=== PATIENT | female | born 1930 | race Caucasian/White ===

== ENCOUNTER 2017-10-31 13:39 | Emergency (ER) | payer MEDICARE ==
[2017-10-31 14:11] VITALS: PULSE 62
[2017-10-31] MEDS ORDERED: SODIUM CHLORIDE 0.9% 1,000 ML IV STA ×2 (14:46)
--- NOTE | 2017-10-31 14:54 | ED ---
General Adult HPI - General Chief complaint: Nausea/Vomiting/Diarrhea Stated complaint: Dehydrated, sent by Time Seen by Provider: 10/31/17 14:29 Source: patient Mode of arrival: ambulatory Limitations: no limitations - History of Present Illness Initial comments: Is 87-year-old white female presents with daughter with the complaint of developing some symptoms of an upper respiratory infection on 10/19/2016. She was initially seen by her primary care physician and started on some Duricef and Singulair. This did not seem to help her symptoms and she developed a fever. She just finished a week long course of Levaquin as well but her upper respiratory symptoms seem to have persisted although the fever has resolved several days ago. She has had some minimal nausea but no vomiting. She apparently developed some diarrhea around 10/19/2016 as well. She barely will have diarrhea every day. She was seen by her primary care physician 2 days ago and placed on Flagyl as well as Imodium. She has not had a bowel movement since yesterday. She denies any abdominal pain. She apparently had blood work done 2 days ago and was called today and told to come to the ER as she is dehydrated and may have a viral infection. She does relate that she feels quite weak. She also feels somewhat lightheaded when she stands up initially. She denies any other complaints or modifying factors. - Related Data Allergies Allergy/AdvReac Type Severity Reaction Status Date / Time No Known Allergies Allergy Verified 10/31/17 14:11 Review of Systems ROS Statement: Those systems with pertinent positive or pertinent negative responses have been documented in the HPI. ROS Other: All systems not noted in ROS Statement are negative. Past Medical History Past Medical History: Hyperlipidemia, Hypertension History of Any Multi-Drug Resistant Organisms: None Reported Past Surgical History: No Surgical Hx Reported Past Psychological History: No Psychological Hx Reported Smoking Status: Never smoker Past Alcohol Use History: None Reported Past Drug Use History: None Reported General Exam - General Exam Comments Initial Comments: GENERAL: The patient is well nourished and well hydrated. VITAL SIGNS: Heart rate, blood pressure, respiratory rate reviewed as recorded in nurse's notes. EYES: Pupils are round and reactive. Extraocular movements are intact. No conjunctival / lid redness or swelling. ENT: No external evidence of injury, swelling, or ecchymosis. Airway is patent. Throat is clear. There is minimally dry mucous membranes. NECK: Nontender. No swelling or evidence of injury. No subcutaneous emphysema. Trachea is midline. No thyroid mass. HEART: Regular rate and rhythm. Good peripheral pulses. LUNGS/CHEST: Breath sounds clear and equal bilaterally. No rales, rhonchi, or wheezes. No ecchymosis, subcutaneous emphysema, or tenderness. ABDOMEN: Abdomen soft without tenderness. No palpable masses or organomegaly. No peritoneal signs. No abdominal wall swelling or ecchymosis. EXTREMITIES: No extremity tenderness. Normal muscle tone and function. No thoracolumbar tenderness. NEUROLOGIC: Sensation is grossly intact. Cranial nerve exam reveals face is symmetrical, tongue is midline, speech is clear. SKIN: No abrasions or ecchymosis is noted. No induration or masses noted. PSYCHIATRIC: Alert and oriented. Appropriate behavior and judgment. Limitations: no limitations Course Vital Signs 10/31/17 10/31/17 14:08 17:15 Temperature 97.9 F 98.5 F Pulse Rate 62 62 Respiratory 20 18 Rate Blood Pressure 138/65 207/89 O2 Sat by Pulse 97 98 Oximetry Medical Decision Making - Medical Decision Making The patient was seen and examined. All diagnostics were reviewed. She is hydrated. She did have a chest x-ray which did not show any acute abnormalities. The laboratory also was unremarkable. Her blood pressure did elevate while in the ER and she receives 20 mg of labetalol intravenously. The exact cause of her symptoms is not definitively determined. It sounds as though she had onset of diarrhea at the same time that she started or before she started the antibiotics. It is unlikely that this is C. difficile colitis. She was unable to give us a stool sample while in the emergency department. She is currently being treated for possible C. diff by a PCP. The patient's diarrhea sounds as though it's fairly minimal and she only is having a couple episodes a day and none for the last day and a half. She is feeling well after obtaining IV fluids. She states that she would like to be discharged home. Of note, her blood pressure became elevated while in the ER and she did receives labetalol intravenously. No admission criteria is currently identified. It is felt as though she stable for discharge and follow-up with her primary care physician in the next several days. - Lab Data Result diagrams: 10/31/17 14:10 10/31/17 14:10 Lab Results 10/31/17 10/31/17 10/31/17 Range/Units 14:10 14:10 15:50 WBC 4.8 (3.8-10.6) k/uL RBC 4.41 (3.80-5.40) m/uL Hgb 13.2 (11.4-16.0) gm/dL Hct 38.3 (34.0-46.0) % MCV 86.9 (80.0-100.0) fL MCH 29.8 (25.0-35.0) pg MCHC 34.4 (31.0-37.0) g/dL RDW 12.6 (11.5-15.5) % Plt Count 100 L (150-450) k/uL Neutrophils % 48 % Lymphocytes % 39 % Monocytes % 6 % Eosinophils % 3 % Basophils % 1 % Neutrophils # 2.3 (1.3-7.7) k/uL Lymphocytes # 1.9 (1.0-4.8) k/uL Monocytes # 0.3 (0-1.0) k/uL Eosinophils # 0.1 (0-0.7) k/uL Basophils # 0.0 (0-0.2) k/uL Sodium 142 (137-145) mmol/L Potassium 4.1 (3.5-5.1) mmol/L Chloride 102 (98-107) mmol/L Carbon Dioxide 28 (22-30) mmol/L Anion Gap 12 mmol/L BUN 19 H (7-17) mg/dL Creatinine 0.89 (0.52-1.04) mg/dL Est GFR (CKD-EPI)AfAm 67 (>60 ml/min/1.73 sqM) Est GFR (CKD-EPI)NonAf 59 (>60 ml/min/1.73 sqM) Glucose 99 (74-99) mg/dL Calcium 9.2 (8.4-10.2) mg/dL Total Bilirubin 0.3 (0.2-1.3) mg/dL AST 42 H (14-36) U/L ALT 41 (9-52) U/L Alkaline Phosphatase 63 (38-126) U/L Total Protein 6.2 L (6.3-8.2) g/dL Albumin 3.9 (3.5-5.0) g/dL Urine Color Yellow Urine Appearance Clear (Clear) Urine pH 6.5 (5.0-8.0) Ur Specific [place] 1.007 (1.001-1.035) Urine Protein Negative (Negative) Urine Glucose (UA) Negative (Negative) Urine Ketones Negative (Negative) Urine Blood Negative (Negative) Urine Nitrite Negative (Negative) Urine Bilirubin Negative (Negative) Urine Urobilinogen <2.0 (<2.0) mg/dL Ur Leukocyte Esterase Negative (Negative) Disposition Clinical Impression: Dehydration, Diarrhea, Upper respiratory infection, Hypertension Disposition: HOME SELF-CARE Condition: Good Instructions: Acute Diarrhea (ED), Upper Respiratory Infection (ED), Hypertension (ED) Is patient prescribed a controlled substance at discharge?: No Referrals: Maddie Chino MD [Primary Care Provider] - 1-2 days Time of Disposition: 17:26
[2017-10-31 15:03] LABS: Basophils % (A) 1 %; Eosinophils # (A) 0.1 k/uL (0-0.7); Eosinophils % (A) 3 %; HCT 38.3 % (34.0-46.0); HGB 13.2 gm/dL (11.4-16.0); Lymphocytes # (A) 1.9 k/uL (1.0-4.8); Lymphocytes % (A) 39 %; MCH 29.8 pg (25.0-35.0); MCHC 34.4 g/dL (31.0-37.0); MCV 86.9 fL (80.0-100.0); Monocytes # (A) 0.3 k/uL (0-1.0); Monocytes % (A) 6 %; Neutrophils # (A) 2.3 k/uL (1.3-7.7); Neutrophils % (A) 48 %; Platelet Count 100 k/uL (150-450); RBC 4.41 m/uL (3.80-5.40); RDW 12.6 % (11.5-15.5); WBC 4.8 k/uL (3.8-10.6)
--- NOTE | 2017-10-31 15:09 | XR ---
EXAMINATION TYPE: XR chest 2V DATE OF EXAM: 10/31/2017 COMPARISON: Prior chest 11/12/2012 HISTORY: Upper respiratory infection, pain TECHNIQUE: Frontal and lateral views of the chest are obtained. FINDINGS: There is no focal air space opacity, pleural effusion, or pneumothorax seen. The cardiac silhouette size is within normal limits. Surgical clips present in the upper abdomen. Prominent lung volumes again noted compatible with COPD. The osseous structures are intact. IMPRESSION: No acute cardiopulmonary process.
[2017-10-31 15:12] LABS: Albumin 3.9 g/dL (3.5-5.0); Calcium 9.2 mg/dL (8.4-10.2); Potassium 4.1 mmol/L (3.5-5.1); Total Bilirubin 0.3 mg/dL (0.2-1.3); Total Protein 6.2 g/dL (6.3-8.2)
[2017-10-31 16:18] LABS: Appearance,Urine Clear (Clear); Bilirubin,Urine Negative (Negative); Blood,Urine Negative (Negative); Color,Urine Yellow; Glucose,Urine (UA) Negative (Negative); Ketones,Urine Negative (Negative); Leukocyte Esterase,Urine Negative (Negative); Nitrite,Urine Negative (Negative); PH, Urine 6.5 (5.0-8.0); Protein,Urine Negative (Negative); Specific Gravity,Urine 1.007 (1.001-1.035); Urobilinogen,Urine <2.0 mg/dL (<2.0)
[2017-10-31 17:16] VITALS: RESP 18; TEMP 98.5
[2017-10-31] MEDS ORDERED: LABETALOL 5 MG/ML VIAL MDV IVP STA (17:23)
[2017-10-31 19:10] VITALS: BP 191/96
== END 2017-10-31 19:21 | disposition home or self-care (01) ==
LOC: EC 13:39
DX: I10 Essential (primary) hypertension (principal); J06.9 Acute upper respiratory infection, unspecified; E86.0 Dehydration; R19.7 Diarrhea, unspecified
CPT/HCPCS: 36415; 71046; 80053; 81003; 85025; 96361; 96374; 99284

== ENCOUNTER → 2019-01-21 | Outpatient (CLI) | payer MEDICARE ==
--- NOTE | 2019-01-21 11:47 | US ---
EXAMINATION TYPE: US abdomen comp/pelvis limited DATE OF EXAM: 01/21/2019 COMPARISON: NONE CLINICAL HISTORY: R94.5 Abnormal LFT R94.4 Abnormal Renal test. EXAM MEASUREMENTS: Liver Length: 10.2 cm Gallbladder Wall: Surgically absent cm CBD: 0.8 cm Spleen: 8.2 cm Right Kidney: 8.8 X 3.2 X 3.5 cm Left Kidney: 8.1 X 3.6 X 2.7 cm Post Void Residual: 55.6 mL Pancreas: wnl Liver: wnl Gallbladder: Surgically absent CBD: wnl Spleen: wnl Right Kidney: wnl Left Kidney: wnl Upper IVC: wnl Abd Aorta: wnl Bladder: wnl Bilateral Jets Seen Right jet seen. Normal Post Void Residual (normal less than 50ml) 55.6 ml IMPRESSION: 1. The liver appears overall unremarkable in echotexture despite the abnormal liver function tests. 2. Abnormal post void residual in the urinary bladder of 55.6 mm.
== END | disposition home or self-care (01) ==
LOC: RADUSWWP 09:58
PROVIDERS: ATTEND Internal Medicine
DX: N39.43 Post-void dribbling (principal)
CPT/HCPCS: 76700; 76857

== ENCOUNTER → 2019-04-21 | Outpatient (CLI) | payer MEDICARE ==
--- NOTE | 2019-04-21 14:57 | XR ---
Left shoulder HISTORY: Left shoulder pain 4 views of the left shoulder Regional spurring present at the glenohumeral joint, there is acromioclavicular joint arthropathy. Al ignment is maintained. Bone mineralization is reduced. No fracture or dislocation. Acromion is downtu rned, consider possible underlying impingement. There is some cloudlike increased attenuation seen in the subacromial region which may be due to calcific tendinitis. IMPRESSION: Osteoarthritis. Additional findings above.
--- NOTE | 2019-04-21 14:58 | XR ---
Left hip HISTORY: Hip pain 2 views of the left hip, correlation to pelvis 11/12/2012 There is arthropathy with marginal spurring present. Alignment and joint space near normal. Bone mine ralization mildly reduced. No fracture or dislocation. IMPRESSION: Osteoarthritis.
== END | disposition home or self-care (01) ==
LOC: RADXRMAIN 13:51
PROVIDERS: ATTEND Midwife
DX: M19.012 Primary osteoarthritis, left shoulder (principal); M16.12 Unilateral primary osteoarthritis, left hip
CPT/HCPCS: 73502

== ENCOUNTER → 2019-06-11 | Outpatient (CLI) | payer MEDICARE ==
--- NOTE | 2019-06-11 15:40 | BD ---
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 Bone mineral density as measured about the Lumbar spine is: ----- L1-L4(G/cm2): 1.107 T Score Values are as follows: ----- L2: -1.2 ----- L3: 0.0 ----- L4:-0.7 ----- L1-L4:-0.6 Bone mineral density about the R hip (g/cm2): 0.873 Bone mineral density about the L hip (g/cm2): 0.834 T Score values are as follows: -----R Neck: -1.2 -----L Neck: -1.5 -----R Total: -1.4 -----L Total: -1.3 IMPRESSION: Osteopenia (T Score between -2.5 and -1) in both hips. There is slightly increased risk of fracture and the patient may be considered for treatment. Re-Screen 2-5 years. NOTE: T-SCORE=SD OF THE YOUNG ADULT MEAN.
== END | disposition home or self-care (01) ==
LOC: RADBDWWP 13:13
PROVIDERS: ATTEND Family Medicine
DX: Z78.0 Asymptomatic menopausal state (principal)
CPT/HCPCS: 77080

== ENCOUNTER 2020-01-02 19:24 | Emergency (ER) | payer MEDICARE ==
[2020-01-02] MEDS ORDERED: ONDANSETRON 4 MG/2 ML VIAL IVP STA (19:52)
[2020-01-02] MEDS ORDERED: SODIUM CHLORIDE 0.9% 500 ML 500 ML IV ONE (19:52)
[2020-01-02] MEDS ORDERED: ATENOLOL 50 MG TAB PO STA (20:14)
[2020-01-02 20:20] LABS: Basophils % (A) 0 %; Eosinophils # (A) 0.2 k/uL (0-0.7); Eosinophils % (A) 2 %; HCT 41.7 % (34.0-46.0); HGB 13.6 gm/dL (11.4-16.0); Lymphocytes # (A) 1.6 k/uL (1.0-4.8); Lymphocytes % (A) 22 %; MCH 29.4 pg (25.0-35.0); MCHC 32.6 g/dL (31.0-37.0); Mean Platelet Volume 7.5; Monocytes # (A) 0.4 k/uL (0-1.0); Monocytes % (A) 6 %; Neutrophils # (A) 4.9 k/uL (1.3-7.7); Neutrophils % (A) 66 %; Platelet Count 144 k/uL (150-450); RBC 4.63 m/uL (3.80-5.40); RDW 12.7 % (11.5-15.5); WBC 7.4 k/uL (3.8-10.6)
[2020-01-02 20:33] LABS: Albumin 4.7 g/dL (3.5-5.0); Calcium 9.9 mg/dL (8.4-10.2); Potassium 3.8 mmol/L (3.5-5.1); Total Bilirubin 0.4 mg/dL (0.2-1.3); Total Protein 7.5 g/dL (6.3-8.2)
[2020-01-02] MEDS ORDERED: KETOROLAC 30 MG/ML 1 ML VIAL IVP STA (20:36)
[2020-01-02 20:37] LABS: Appearance,Urine Clear (Clear); Bilirubin,Urine Negative (Negative); Blood,Urine Negative (Negative); Color,Urine Yellow; Glucose,Urine (UA) Negative (Negative); Hyaline Casts,Urine 1 /lpf (0-2); Ketones,Urine Negative (Negative); Leukocyte Esterase,Urine Trace (Negative); Mucus,Urine Rare /hpf; Nitrite,Urine Negative (Negative); PH, Urine 6.5 (5.0-8.0); Protein,Urine Trace (Negative); RBC,Urine 6 /hpf (0-5); Specific Gravity,Urine 1.011 (1.001-1.035); Urobilinogen,Urine <2.0 mg/dL (<2.0); WBC,Urine 1 /hpf (0-5)
--- NOTE | 2020-01-02 20:59 | ED ---
General Adult HPI - General Chief complaint: Urogenital Stated complaint: UTI Time Seen by Provider: 01/02/20 19:33 Source: patient, family Mode of arrival: wheelchair Limitations: no limitations - History of Present Illness Initial comments: 89-year-old female patient presents to the emergency department today for evaluation of increased low back pain and abdominal pain. Patient was tested and started treated for urinary tract infection on Sunday. She states that prior to her visit at urgent care Sunday she was experiencing urinary frequency. Patient states she did start taking Macrobid for this. States that over the last couple days she has been increasingly more weak. States she did start having increased low back pain and upper abdominal pain. She states that she feels nauseated but has not vomited. Denies any fever or chills. Denies any confusion. Patient denies any recent rash, cough, shortness of breath, chest pain, diarrhea, constipation, numbness, tingling, dizziness, headache, visual changes, or any other complaints. - Related Data Allergies Allergy/AdvReac Type Severity Reaction Status Date / Time No Known Allergies Allergy Verified 01/02/20 19:32 Review of Systems ROS Statement: Those systems with pertinent positive or pertinent negative responses have been documented in the HPI. ROS Other: All systems not noted in ROS Statement are negative. Past Medical History Past Medical History: Hyperlipidemia, Hypertension, Thyroid Disorder History of Any Multi-Drug Resistant Organisms: None Reported Past Surgical History: No Surgical Hx Reported Past Psychological History: No Psychological Hx Reported Smoking Status: Never smoker Past Alcohol Use History: None Reported Past Drug Use History: None Reported General Exam Limitations: no limitations General appearance: alert, in no apparent distress, other (This is a well- developed, well-nourished elderly female patient in no acute distress. Vital signs upon presentation are temperature 98.8F, pulse 76, respirations 18, blood pressure 208/75, pulse ox 96% on room air.) Eye exam: Present: normal appearance, PERRL, EOMI. Absent: scleral icterus, conjunctival injection, periorbital swelling ENT exam: Present: normal exam, normal oropharynx, mucous membranes moist Respiratory exam: Present: normal lung sounds bilaterally. Absent: respiratory distress, wheezes, rales, rhonchi, stridor Cardiovascular Exam: Present: regular rate, normal rhythm, normal heart sounds. Absent: systolic murmur, diastolic murmur, rubs, gallop, clicks GI/Abdominal exam: Present: soft, normal bowel sounds. Absent: distended, tenderness, guarding, rebound, rigid Back exam: Present: normal inspection. Absent: CVA tenderness (R), CVA tenderness (L) Neurological exam: Present: alert, oriented X3, CN II-XII intact Psychiatric exam: Present: normal affect, normal mood Skin exam: Present: warm, dry, intact, normal color. Absent: rash Course Vital Signs 01/02/20 01/02/20 01/03/20 19:30 22:44 00:05 Temperature 98.8 F 98.4 F Pulse Rate 76 67 64 Respiratory 18 20 18 Rate Blood Pressure 208/75 219/111 181/81 O2 Sat by Pulse 96 98 97 Oximetry Medical Decision Making - Medical Decision Making 89-year-old female patient presents to the emergency department today for evaluation of weakness and back pain. Physical examination did reveal mild midepigastric tenderness. Labs reviewed and are relatively unremarkable. CT abdomen and pelvis was obtained and did show dilation of the pancreatic and common bile duct which could be chronic with her cholecystectomy. Bilirubin and alk phos levels were normal. Urinalysis showed no evidence for infection h owever CT did show circumferential bladder wall thickening which could be seen with cystitis. I did discuss findings and results with the patient. We did offer admission however patient would like to be discharged home to continue her antibiotics and to follow-up with her primary care physician. Return parameters were discussed in detail. Patient and family verbalized understanding and agree with this plan. - Lab Data Result diagrams: 01/02/20 20:10 01/02/20 20:10 Lab Results 01/02/20 01/02/20 01/02/20 Range/Units 20:10 20:10 20:10 WBC 7.4 (3.8-10.6) k/uL RBC 4.63 (3.80-5.40) m/uL Hgb 13.6 (11.4-16.0) gm/dL Hct 41.7 (34.0-46.0) % MCV 90.0 (80.0-100.0) fL MCH 29.4 (25.0-35.0) pg MCHC 32.6 (31.0-37.0) g/dL RDW 12.7 (11.5-15.5) % Plt Count 144 L (150-450) k/uL Neutrophils % 66 % Lymphocytes % 22 % Monocytes % 6 % Eosinophils % 2 % Basophils % 0 % Neutrophils # 4.9 (1.3-7.7) k/uL Lymphocytes # 1.6 (1.0-4.8) k/uL Monocytes # 0.4 (0-1.0) k/uL Eosinophils # 0.2 (0-0.7) k/uL Basophils # 0.0 (0-0.2) k/uL Sodium 132 L (137-145) mmol/L Potassium 3.8 (3.5-5.1) mmol/L Chloride 99 (98-107) mmol/L Carbon Dioxide 22 (22-30) mmol/L Anion Gap 11 mmol/L BUN 16 (7-17) mg/dL Creatinine 0.76 (0.52-1.04) mg/dL Est GFR (CKD-EPI)AfAm 81 (>60 ml/min/1.73 sqM) Est GFR (CKD-EPI)NonAf 70 (>60 ml/min/1.73 sqM) Glucose 117 H (74-99) mg/dL Plasma Lactic Acid Jayson 1.5 (0.7-2.0) mmol/L Calcium 9.9 (8.4-10.2) mg/dL Total Bilirubin 0.4 (0.2-1.3) mg/dL AST 40 H (14-36) U/L ALT 31 (4-34) U/L Alkaline Phosphatase 74 (38-126) U/L Troponin I (0.000-0.034) ng/mL Total Protein 7.5 (6.3-8.2) g/dL Albumin 4.7 (3.5-5.0) g/dL Lipase 218 (23-300) U/L Urine Color Urine Appearance (Clear) Urine pH (5.0-8.0) Ur Specific [place] (1.001-1.035) Urine Protein (Negative) Urine Glucose (UA) (Negative) Urine Ketones (Negative) Urine Blood (Negative) Urine Nitrite (Negative) Urine Bilirubin (Negative) Urine Urobilinogen (<2.0) mg/dL Ur Leukocyte Esterase (Negative) Urine RBC (0-5) /hpf Urine WBC (0-5) /hpf Hyaline Casts (0-2) /lpf Urine Mucus (None) /hpf 01/02/20 01/02/20 Range/Units 20:10 20:25 WBC (3.8-10.6) k/uL RBC (3.80-5.40) m/uL Hgb (11.4-16.0) gm/dL Hct (34.0-46.0) % MCV (80.0-100.0) fL MCH (25.0-35.0) pg MCHC (31.0-37.0) g/dL RDW (11.5-15.5) % Plt Count (150-450) k/uL Neutrophils % % Lymphocytes % % Monocytes % % Eosinophils % % Basophils % % Neutrophils # (1.3-7.7) k/uL Lymphocytes # (1.0-4.8) k/uL Monocytes # (0-1.0) k/uL Eosinophils # (0-0.7) k/uL Basophils # (0-0.2) k/uL Sodium (137-145) mmol/L Potassium (3.5-5.1) mmol/L Chloride (98-107) mmol/L Carbon Dioxide (22-30) mmol/L Anion Gap mmol/L BUN (7-17) mg/dL Creatinine (0.52-1.04) mg/dL Est GFR (CKD-EPI)AfAm (>60 ml/min/1.73 sqM) Est GFR (CKD-EPI)NonAf (>60 ml/min/1.73 sqM) Glucose (74-99) mg/dL Plasma Lactic Acid Jayson (0.7-2.0) mmol/L Calcium (8.4-10.2) mg/dL Total Bilirubin (0.2-1.3) mg/dL AST (14-36) U/L ALT (4-34) U/L Alkaline Phosphatase (38-126) U/L Troponin I <0.012 (0.000-0.034) ng/mL Total Protein (6.3-8.2) g/dL Albumin (3.5-5.0) g/dL Lipase (23-300) U/L Urine Color Yellow Urine Appearance Clear (Clear) Urine pH 6.5 (5.0-8.0) Ur Specific [place] 1.011 (1.001-1.035) Urine Protein Trace H (Negative) Urine Glucose (UA) Negative (Negative) Urine Ketones Negative (Negative) Urine Blood Negative (Negative) Urine Nitrite Negative (Negative) Urine Bilirubin Negative (Negative) Urine Urobilinogen <2.0 (<2.0) mg/dL Ur Leukocyte Esterase Trace H (Negative) Urine RBC 6 H (0-5) /hpf Urine WBC 1 (0-5) /hpf Hyaline Casts 1 (0-2) /lpf Urine Mucus Rare H (None) /hpf - Radiology Data Radiology results: report reviewed, image reviewed CT abdomen and pelvis is obtained. Report was reviewed in its entirety. Impression by Dr. Arredondo shows mild dilatation of the bile duct up to 9 mm. Mild dilatation of the main pancreatic duct as well as 4 mm. All findings may be chronic in this patient status post cholecystectomy there is 7 mm nodular soft tissue prominence of the ampullary region. Correlate with alkaline phosphatase and bilirubin levels to exclude biliary obstruction. Laboratory values are elevated, ERCP can be considered to assess sample area region. Gastric fold thickening and hyperemia can be seen with chronic gastritis. Circumferential bladder wall thickening. Correlate to exclude cystitis. Sigmoid diverticulosis without acute diverticulitis. Disposition Clinical Impression: Back pain, Abdominal pain, UTI (urinary tract infection) Disposition: HOME SELF-CARE Condition: Good Instructions (If sedation given, give patient instructions): Abdominal Pain (ED), Back Pain (ED), Urinary Tract Infection in Older Adults (ED) Additional Instructions: Continue antibiotics. Take pain medication and nausea medication as needed. Follow up with the GI specialist for further evaluation as soon as possible. Return to the emergency department for any new, worsening, or concerning symptoms. Is patient prescribed a controlled substance at d/c from ED?: No Referrals: Marce Ceja MD [STAFF PHYSICIAN] - 1-2 days Juan Manuel Saravia MD [STAFF PHYSICIAN] - 1-2 days Time of Disposition: 23:44
--- NOTE | 2020-01-02 21:55 | CT ---
EXAMINATION TYPE: CT abdomen pelvis w con DATE OF EXAM: 01/02/2020 COMPARISON: NONE HISTORY: 89-year-old female Back and abdominal pain. TECHNIQUE: Contiguous axial scanning of the abdomen and pelvis following administration of 100 ml Iso urvashi 300 IV contrast. Delayed images through the kidneys and coronal/sagittal reconstructions perform ed. CT DLP: 514.8 mGycm Automated exposure control for dose reduction was used. FINDINGS: Heart upper limits of normal in size without pericardial effusion. Strandy atelectasis in the lower l ungs without pleural effusion. Tiny hiatal hernia. Bile duct dilated up to 9 mm with mild intrahepatic ductal dilatation centrally. Main pancreatic duct is also prominent at 4 mm. 7 mm nodular prominence to the ampullary region. Refer to axial image 30. Cholecystectomy clips. Adrenal glands, right kidney with extra renal pelvis, left kidney, and spleen appear within normal li mits. Remainder of the pancreas shows no gross abnormality. Some diffuse gastric fold thickening and hyperemia. No dilated small bowel, free fluid, or free air. No mesenteric or retroperitoneal lymphadenopathy. Sigmoid diverticulosis. Mild stool right side of the colon. No pericolonic inflammatory change identi fied. Mild circumferential bladder wall thickening. Uterus anteverted. Left ovary visualized. Right ovary n ot clearly delineated from bowel loops. No abnormal fluid collection in the pelvis or pelvic lymphade nopathy. Bones: Degenerative disc disease throughout the lumbar spine along with facet arthropathy. Degenerati ve changes at both hips. IMPRESSION: 1. MILD DILATATION OF THE BILE DUCT UP TO 9 MM. MILD DILATATION OF THE MAIN PANCREATIC DUCT WELL A T 4 MM. WHILE FINDINGS MAY BE CHRONIC IN THIS PATIENT STATUS POST CHOLECYSTECTOMY, THERE IS 7 MM NODU LAR SOFT TISSUE PROMINENCE TO THE AMPULLARY REGION. CORRELATE WITH ALKALINE PHOSPHATASE AND BILIRUBIN LEVELS TO EXCLUDE BILIARY OBSTRUCTION. IF LABORATORY VALUES ARE ELEVATED, ERCP CAN BE CONSIDERED TO ASSESS THE AMPULLARY REGION. 2. GASTRIC FOLD THICKENING AND HYPEREMIA CAN BE SEEN WITH CHRONIC GASTRITIS. 3. CIRCUMFERENTIAL BLADDER WALL THICKENING. CORRELATE TO EXCLUDE CYSTITIS. 4. SIGMOID DIVERTICULOSIS WITHOUT ACUTE DIVERTICULITIS.
[2020-01-02 22:45] VITALS: TEMP 98.4
[2020-01-02] MEDS ORDERED: MORPHINE SULFATE 4 MG/ML SYRINGE IVP STA (22:49)
[2020-01-02] MEDS ORDERED: ENALAPRILAT 1.25 MG/ML 1 ML VIAL IVP STA (23:43)
[2020-01-03 00:10] VITALS: BP 181/81; PULSE 64; RESP 18
[2020-01-03] MEDS ORDERED: ACET/COD 300 MG/30 MG STARTER PACK 6 TAB BTL PO STA (00:11)
== END 2020-01-03 00:22 | disposition home or self-care (01) ==
LOC: EC 19:24
DX: N39.0 Urinary tract infection, site not specified (principal)
CPT/HCPCS: 36415; 93005; 80053; 83605; 83690; 84484; 85025; 81001; 74177; 99284; 96374; 96375 ×3; 96361; J2270; J2405; J1885; Q9967

== ENCOUNTER 2020-01-05 10:27 | Observation (INO) | payer MEDICARE ==
[2020-01-05] MEDS ORDERED: MORPHINE SULFATE 2 MG/ML SYRINGE IVP STA (11:13)
[2020-01-05] MEDS ORDERED: SODIUM CHLORIDE 0.9% 1,000 ML IV STA (11:13)
--- NOTE | 2020-01-05 11:17 | ED ---
Abdominal Pain HPI <Ephraim Stanley - Last Filed: 01/05/20 13:44> - General Source: patient, family Mode of arrival: wheelchair Limitations: no limitations <Amadeo Lauren - Last Filed: 01/05/20 14:02> - General Chief Complaint: Abdominal Pain Stated Complaint: Abd pain, can't eat Time Seen by Provider: 01/05/20 10:43 - History of Present Illness Initial Comments: Patient is an 89-year-old female presenting to the emergency department with chief complaint of weakness and abdominal pain. Patient reports she was in the emergency department 2 days ago with similar symptoms. Patient reports she was advised to see a GI doctor who declined admission. Patient reports her abdominal pain is slightly better as well as for back pain. However, she continues to be weak and is not able to eat. Reports the abdominal bloating a sense resolved. Denies any urinary or vaginal symptoms at this time. Reports the back pain is about 4/10. Denies any significant abdominal pain at this time. Denies any nausea or vomiting. Denies hematuria, hematochezia or melena. Does report mild diarrhea. (Amadeo Lauren) - Related Data Home Medications Medication Instructions Recorded Confirmed Acetaminophen [Tylenol Arthritis] 650 mg PO Q12H PRN 01/05/20 01/05/20 Ascorbic Acid [Vitamin C] 500 mg PO DAILY 01/05/20 01/05/20 Aspirin EC [Ecotrin Low Dose] 81 mg PO DAILY 01/05/20 01/05/20 Atenolol [Tenormin] 50 mg PO HS 01/05/20 01/05/20 Atorvastatin [Lipitor] 10 mg PO HS 01/05/20 01/05/20 Bee Pollen 550 mg PO DAILY 01/05/20 01/05/20 Calcium Carbonate/Vitamin D3 1 tab PO BID 01/05/20 01/05/20 [Calcium 600-Vit D3 200 Tablet] Cholecalciferol [Vitamin D3 (25 1,000 unit PO DAILY 01/05/20 01/05/20 Mcg = 1000 Iu)] Cranberry 4200mg 4,200 mg PO DAILY 01/05/20 01/05/20 Garlic 1 tab PO DAILY 01/05/20 01/05/20 Glucosamine Hcl 2000mg 2,000 mg PO DAILY 01/05/20 01/05/20 Ibuprofen [Motrin Ib] 200 - 400 mg PO Q6H PRN 01/05/20 01/05/20 Levothyroxine Sodium [Synthroid] 25 mcg PO DAILY 01/05/20 01/05/20 Magnesium 200 mg PO BID 01/05/20 01/05/20 Multivitamins, Thera [Multivitamin 1 tab PO DAILY 01/05/20 01/05/20 (formulary)] Nitrofurantoin Monohyd/M-Cryst 100 mg PO Q12HR 01/05/20 01/05/20 [Macrobid] Omeprazole 20 mg PO DAILY 01/05/20 01/05/20 Turmeric Root Extract [Turmeric] 500 mg PO DAILY 01/05/20 01/05/20 quiNIDine SULFATE 300 mg PO Q48H 01/05/20 01/05/20 Allergies Allergy/AdvReac Type Severity Reaction Status Date / Time No Known Allergies Allergy Verified 01/05/20 11:41 Review of Systems ROS Other: All systems not noted in ROS Statement are negative. <Ephraim Stanley - Last Filed: 01/05/20 13:44> ROS Other: All systems not noted in ROS Statement are negative. <Amadeo Lauren - Last Filed: 01/05/20 14:02> ROS Statement: Those systems with pertinent positive or pertinent negative responses have been documented in the HPI. Past Medical History Past Medical History: Hyperlipidemia, Hypertension, Thyroid Disorder History of Any Multi-Drug Resistant Organisms: None Reported Past Surgical History: No Surgical Hx Reported Past Psychological History: No Psychological Hx Reported Smoking Status: Never smoker Past Alcohol Use History: None Reported Past Drug Use History: None Reported <Amadeo Lauren - Last Filed: 01/05/20 14:02> General Exam Limitations: no limitations General appearance: alert, in no apparent distress Head exam: Present: atraumatic, normocephalic, normal inspection Eye exam: Present: normal appearance, PERRL, EOMI Pupils: Present: normal accommodation ENT exam: Present: normal exam, normal oropharynx, mucous membranes moist Neck exam: Present: normal inspection, full ROM. Absent: tenderness Respiratory exam: Present: normal lung sounds bilaterally. Absent: respiratory distress, wheezes Cardiovascular Exam: Present: regular rate, normal rhythm, normal heart sounds GI/Abdominal exam: Present: soft, tenderness (Mild left upper quadrant abdominal tenderness.), normal bowel sounds. Absent: distended, guarding, rebound, rigid Extremities exam: Present: normal inspection, full ROM, normal capillary refill, other (+2 ulnar and radial pulses bilateral.). Absent: tenderness Back exam: Present: normal inspection, full ROM. Absent: tenderness, CVA tenderness (R), CVA tenderness (L), muscle spasm, paraspinal tenderness, vertebral tenderness (No lumbar paraspinal or vertebral tenderness.) Neurological exam: Present: alert, oriented X3 Psychiatric exam: Present: normal affect, normal mood Skin exam: Present: warm, dry, intact, normal color <Amadeo Lauren - Last Filed: 01/05/20 14:02> Course Vital Signs 01/05/20 01/05/20 01/05/20 10:38 12:25 13:19 Temperature 98.9 F 98.6 F Pulse Rate 75 63 63 Respiratory 18 18 18 Rate Blood Pressure 137/68 205/84 224/82 O2 Sat by Pulse 98 98 98 Oximetry 01/05/20 01/05/20 01/05/20 13:30 13:40 13:54 Temperature Pulse Rate 70 69 Respiratory 18 18 Rate Blood Pressure 160/69 166/69 169/71 O2 Sat by Pulse Oximetry Medical Decision Making - Lab Data Result diagrams: 01/05/20 11:25 01/05/20 11:25 <Ephraim Stanley - Last Filed: 01/05/20 13:44> - Lab Data Result diagrams: 01/05/20 11:25 01/05/20 11:25 <Amadeo Lauren - Last Filed: 01/05/20 14:02> - Medical Decision Making Patient reevaluated and reexamined by myself, Dr. Stanley. I do agree with PAs findings. This includes diagnostic interpretation and treatment plan. Patient has had abdominal discomfort for the past several days. Decreased appetite. Patient has been generally weak and easily fatigued. Case was discussed with Dr. Emmanuel, who will admit covering for Dr. Ceja. He does request chest x-ray and lactic acid and d-dimer. He also feels GI will be needed for MRCP. (Ephraim Stanley) Patient is an 89-year-old female presenting to emergency Department with chief complaint of increased weakness and abdominal pain. On exam patient appears to have some left upper quadrant abdominal pain. No back pain or CVA tenderness. Laboratory results revealed no significant findings. Patient will be admitted for further medical management. Case discussed with Dr. Stanley who spoke to Dr. Emmanuel regarding the case. He requested chest and abdominal x-ray, lactic acid and d-dimer. GI will be consulted. (Amadeo Lauren) - Lab Data Lab Results 01/05/20 01/05/20 01/05/20 Range/Units 11:25 11:25 11:25 WBC 8.4 (3.8-10.6) k/uL RBC 4.37 (3.80-5.40) m/uL Hgb 13.6 (11.4-16.0) gm/dL Hct 39.7 (34.0-46.0) % MCV 90.9 (80.0-100.0) fL MCH 31.1 (25.0-35.0) pg MCHC 34.2 (31.0-37.0) g/dL RDW 12.8 (11.5-15.5) % Plt Count 185 (150-450) k/uL Neutrophils % 61 % Lymphocytes % 26 % Monocytes % 6 % Eosinophils % 3 % Basophils % 0 % Neutrophils # 5.1 (1.3-7.7) k/uL Lymphocytes # 2.2 (1.0-4.8) k/uL Monocytes # 0.5 (0-1.0) k/uL Eosinophils # 0.3 (0-0.7) k/uL Basophils # 0.0 (0-0.2) k/uL Sodium 136 L (137-145) mmol/L Potassium 4.3 (3.5-5.1) mmol/L Chloride 99 (98-107) mmol/L Carbon Dioxide 28 (22-30) mmol/L Anion Gap 9 mmol/L BUN 25 H (7-17) mg/dL Creatinine 0.96 (0.52-1.04) mg/dL Est GFR (CKD-EPI)AfAm 61 (>60 ml/min/1.73 sqM) Est GFR (CKD-EPI)NonAf 53 (>60 ml/min/1.73 sqM) Glucose 86 (74-99) mg/dL Calcium 9.2 (8.4-10.2) mg/dL Total Bilirubin 0.4 (0.2-1.3) mg/dL AST 30 (14-36) U/L ALT 26 (4-34) U/L Alkaline Phosphatase 66 (38-126) U/L Total Protein 6.8 (6.3-8.2) g/dL Albumin 4.2 (3.5-5.0) g/dL Lipase 143 (23-300) U/L Urine Color Yellow Urine Appearance Clear (Clear) Urine pH 7.0 (5.0-8.0) Ur Specific [place] 1.005 (1.001-1.035) Urine Protein 1+ H (Negative) Urine Glucose (UA) Negative (Negative) Urine Ketones Negative (Negative) Urine Blood Negative (Negative) Urine Nitrite Negative (Negative) Urine Bilirubin Negative (Negative) Urine Urobilinogen <2.0 (<2.0) mg/dL Ur Leukocyte Esterase Small (Negative) Urine RBC 2 (0-5) /hpf Urine WBC 2 (0-5) /hpf Ur Squamous Epith Cells <1 (0-4) /hpf Urine Bacteria Rare H (None) /hpf Hyaline Casts 21 H (0-2) /lpf Urine Mucus Rare H (None) /hpf Disposition <Ephraim Stanley - Last Filed: 01/05/20 13:44> Is patient prescribed a controlled substance at d/c from ED?: No Time of Disposition: 14:01 <Amadeo Lauren - Last Filed: 01/05/20 14:02> Clinical Impression: Abdominal pain, Weakness Disposition: ADMITTED IP TO THIS HOSP Condition: Good Instructions (If sedation given, give patient instructions): Abdominal Pain (ED) Additional Instructions: Patient will be admitted Referrals: Marce Ceja MD [Primary Care Provider] - 1-2 days
[2020-01-05 11:49] LABS: Basophils % (A) 0 %; Eosinophils # (A) 0.3 k/uL (0-0.7); Eosinophils % (A) 3 %; HCT 39.7 % (34.0-46.0); HGB 13.6 gm/dL (11.4-16.0); Lymphocytes # (A) 2.2 k/uL (1.0-4.8); Lymphocytes % (A) 26 %; MCH 31.1 pg (25.0-35.0); MCHC 34.2 g/dL (31.0-37.0); MCV 90.9 fL (80.0-100.0); Mean Platelet Volume 7.7; Monocytes # (A) 0.5 k/uL (0-1.0); Monocytes % (A) 6 %; Neutrophils # (A) 5.1 k/uL (1.3-7.7); Neutrophils % (A) 61 %; Platelet Count 185 k/uL (150-450); RBC 4.37 m/uL (3.80-5.40); RDW 12.8 % (11.5-15.5); WBC 8.4 k/uL (3.8-10.6)
[2020-01-05 11:56] LABS: Albumin 4.2 g/dL (3.5-5.0); Bacteria,Urine Rare /hpf; Calcium 9.2 mg/dL (8.4-10.2); Hyaline Casts,Urine 21 /lpf (0-2); Mucus,Urine Rare /hpf; Potassium 4.3 mmol/L (3.5-5.1); RBC,Urine 2 /hpf (0-5); Squamous Epithelial Cell,Urine <1 /hpf (0-4); Total Bilirubin 0.4 mg/dL (0.2-1.3); Total Protein 6.8 g/dL (6.3-8.2)
[2020-01-05 12:02] LABS: Appearance,Urine Clear (Clear); Color,Urine Yellow; Specific Gravity,Urine 1.005 (1.001-1.035)
[2020-01-05 12:03] LABS: Protein,Urine 1+ (Negative)
[2020-01-05 12:04] LABS: Bilirubin,Urine Negative (Negative); Blood,Urine Negative (Negative); Glucose,Urine (UA) Negative (Negative); Ketones,Urine Negative (Negative); Urobilinogen,Urine <2.0 mg/dL (<2.0)
[2020-01-05 12:05] LABS: Leukocyte Esterase,Urine Small (Negative); Nitrite,Urine Negative (Negative); WBC,Urine 2 /hpf (0-5)
[2020-01-05] MEDS ORDERED: hydrALAZINE HCL 20 MG/ML 1 ML VIAL IVP STA (12:59)
[2020-01-05] MEDS ORDERED: HYDROmorphone 0.5 MG/0.5 ML SYRINGE IVP PRN (13:47)
[2020-01-05] MEDS ORDERED: ACETAMINOPHEN TAB 325 MG TAB PO PRN (13:47)
[2020-01-05] MEDS ORDERED: NALOXONE 0.4 MG/ML 1 ML VIAL IV PRN (13:47)
[2020-01-05] MEDS ORDERED: LORazepam 2 MG/ML INJ IV PRN (13:47)
[2020-01-05] MEDS ORDERED: ONDANSETRON 4 MG/2 ML VIAL IVP PRN (13:47)
[2020-01-05] MEDS ORDERED: MORPHINE SULFATE 4 MG/ML SYRINGE IV PRN (13:47)
--- NOTE | 2020-01-05 14:21 | XR ---
EXAMINATION TYPE: XR chest 2V DATE OF EXAM: 01/05/2020 COMPARISON: Chest x-ray October 31, 2017. HISTORY: Chest and upper abdominal pain. TECHNIQUE: Frontal and lateral views of the chest are obtained. FINDINGS: There is chronic parenchymal changes bilaterally without suspicious new focal air space op acity, pleural effusion, or pneumothorax seen. The cardiac silhouette size remains within normal hu its with atherosclerotic change in the thoracic aorta. Cholecystectomy clips are present. The osseou s structures are demineralized. IMPRESSION: Chronic changes without acute pulmonary process.
[2020-01-05] MEDS: SODIUM CHLORIDE 0.9% 1,000 ML IV SCH (15:04)
--- NOTE | 2020-01-05 15:04 | US ---
EXAMINATION TYPE: US abdomen complete DATE OF EXAM: 01/05/2020 COMPARISON: CT 01/02/2020, US 01/21/2019 CLINICAL HISTORY: abd pain. EXAM MEASUREMENTS: Liver Length: 10.7 cm Gallbladder Wall: Surgically absent CBD: 0.9 cm Spleen: 7.9 cm Right Kidney: 9.1 x 4.0 x 4.0 cm Left Kidney: 8.1 x 3.6 x 3.1 cm Pancreas: Obscured by bowel gas Liver: heterogeneous Gallbladder: Surgically absent Evidence for sonographic Lynn's sign: No CBD: wnl for postcholecystectomy, distal portion obscured by bowel gas Spleen: wnl Right Kidney: No hydronephrosis or masses seen Left Kidney: Measuring slightly smaller versus right Upper IVC: wnl Abd Aorta: Atherosclerotic changes The liver is heterogeneous consistent with diffuse fatty infiltration with prominent left hepatic lob e. The intrahepatic portion of the IVC is unremarkable. Visualized abdominal aorta shows diffuse ath erosclerotic change without aneurysm. Gallbladder noted surgically absent. Common bile duct is unrem arkable. Suboptimal evaluation of pancreas and images saved. The spleen is unremarkable. Kidneys ar e symmetric and free of hydronephrosis. No renal lesions are seen. IMPRESSION: No suspicious new or acute finding from recent CT 3 days ago.
[2020-01-05] MEDS ORDERED: cloNIDine HCL 0.2 MG TAB PO STA (15:14)
[2020-01-05] MEDS ORDERED: SODIUM CHLORIDE 0.9% 1,000 ML IV ONE (17:46)
--- NOTE | 2020-01-05 19:53 | XR ---
EXAMINATION TYPE: XR lumbar spine 2 or 3V DATE OF EXAM: 01/05/2020 COMPARISON: NONE HISTORY: Back pain TECHNIQUE: 2 views FINDINGS: There is some hypertrophic spurring of the endplates. There is narrowing of L4-5 L5-S1 dis c spaces. Abdominal aorta is atheromatous. Lumbar vertebra have normal alignment. Sacroiliac joints a ppear intact. IMPRESSION: Mild degenerative disc changes in the lumbar spine. No fracture seen.
[2020-01-06 06:08] LABS: Basophils % (A) 1 %; Eosinophils # (A) 0.3 k/uL (0-0.7); Eosinophils % (A) 4 %; HCT 35.5 % (34.0-46.0); HGB 11.8 gm/dL (11.4-16.0); Lymphocytes # (A) 2.4 k/uL (1.0-4.8); Lymphocytes % (A) 37 %; MCH 30.7 pg (25.0-35.0); MCHC 33.3 g/dL (31.0-37.0); MCV 92.4 fL (80.0-100.0); Mean Platelet Volume 7.9; Monocytes # (A) 0.4 k/uL (0-1.0); Monocytes % (A) 6 %; Neutrophils # (A) 3.3 k/uL (1.3-7.7); Neutrophils % (A) 50 %; Platelet Count 161 k/uL (150-450); RBC 3.85 m/uL (3.80-5.40); WBC 6.5 k/uL (3.8-10.6)
[2020-01-06 06:17] LABS: Albumin 3.3 g/dL (3.5-5.0); Calcium 8.4 mg/dL (8.4-10.2); Total Bilirubin 0.5 mg/dL (0.2-1.3); Total Protein 5.7 g/dL (6.3-8.2)
[2020-01-06 06:18] LABS: Potassium 3.8 mmol/L (3.5-5.1)
[2020-01-06] MEDS ORDERED: PANTOPRAZOLE 40 MG TABLET PO SCH ×2 (07:30→09:00)
[2020-01-06] MEDS: PIPERACILLIN-TAZOBACTAM 3.375 GM in SODIUM CHLORIDE 0.9% 100 ML IVPB SCH ×2 (08:13→16:41)
[2020-01-06] MEDS: LEVOTHYROXINE 25 MCG TAB PO SCH (08:15)
[2020-01-06] MEDS: SODIUM CHLORIDE 0.9% 1,000 ML IV SCH ×2 (08:15→16:43)
[2020-01-06] MEDS: ASPIRIN 81 MG PO SCH (08:16)
[2020-01-06] MEDS: ASCORBIC ACID 500 MG TAB PO SCH (08:16)
[2020-01-06] MEDS: CHOLECALCIFEROL 1,000 UNIT TAB PO SCH (08:16)
[2020-01-06] MEDS: MAGNESIUM OXIDE 400 MG TAB PO SCH ×2 (08:16→21:32)
[2020-01-06] MEDS: CALCIUM CARB-VIT D 500MG-200UN 1 EACH TAB PO SCH ×2 (08:16→21:32)
[2020-01-06] MEDS: NITROFURANTOIN MONOHYD/M-CRYST 100 MG CAP PO SCH ×2 (08:17→21:42)
[2020-01-06] MEDS: MULTIVITAMINS, THERA 1 EACH TAB PO SCH (08:18)
[2020-01-06] MEDS ORDERED: NON FORMULARY DRUG (Garlic [Garlic] 1 TAB) PO SCH (09:00)
[2020-01-06] MEDS ORDERED: NON FORMULARY DRUG (Cranberry 4200mg 4,200 MG) PO SCH (09:00)
[2020-01-06] MEDS ORDERED: QUINIDINE SULFATE 300 MG PO SCH (09:00)
[2020-01-06] MEDS ORDERED: NON FORMULARY DRUG (Turmeric Root Extract [Turmeric] 500 MG) PO SCH (09:00)
[2020-01-06] MEDS: metroNIDAZOLE 500 MG TAB PO SCH ×3 (12:52→21:42)
[2020-01-06] MEDS ORDERED: LIDOCAINE 1% INJ 10MG/ML (20 ML MDV) ONE (14:09)
[2020-01-06] MEDS ORDERED: PROPOFOL 10 MG/ML 20 ML VIAL IV ONE (14:09)
[2020-01-06] MEDS ORDERED: SODIUM CHLORIDE 0.9% 1,000 ML IV ONE ×2 (14:22)
--- NOTE | 2020-01-06 15:10 | P.PCN ---
Date of Procedure: 01/06/20 Procedure(s) Performed: BRIEF HISTORY: Patient is a 89-year-old, pleasant, white female admitted hospital with progressive dysphagia to solids for the last several weeks duration. She feels the food gets stuck in her throat area. She has been having passive regurgitation. Scheduled for an upper endoscopy with a possible dilation. PROCEDURE PERFORMED: Esophagogastroduodenoscopy with biopsy and dilation. PREOPERATIVE DIAGNOSIS: Progressive dysphagia to solids for the last few weeks duration. IV sedation per anesthesia. PROCEDURE: After informed consent was obtained, the patient was brought into the endoscopy unit. IV sedation was administered by Anesthesia under continuous monitoring. Initially the Olympus GIF-140 video endoscope was inserted into the mouth. Esophagus intubated without any difficulty. It was gradually advanced into the stomach and duodenum and carefully examined. The bulb and the second part of the duodenum appeared normal. The scope at this time was withdrawn to the stomach, adequately insufflated with air, and upon careful examination, mucosa of the antrum, body, cardia and the fundus appeared normal. The scope was then withdrawn into the esophagus. The GE junction was located at 39 cm from the incisors. There was a distal esophageal Schatzki's ring identified and this was dilated using 10-15 mm TTS balloon in a sequential fashion for 60 seconds. Also there was a superficial ulceration noted in the distal esophagus and biopsies were done from this area. The rest of the esophagus appeared normal. There were no erosions or ulcerations seen and the patient tolerated the procedure well. IMPRESSION: 1. Distal esophageal Schatzki's ring status post balloon dilation using 12-15 mm TTS balloon as Above. 2. Superficial ulceration in the distal esophagus consistent with reflux esophagitis. RECOMMENDATIONS: The findings of this examination were discussed with the patient as well as a family. She'll be on a clear liquid diet today. Continue with Protonix 40 mg twice daily. Await biopsy results.
--- NOTE | 2020-01-06 16:23 | CONS ---
CONSULTATION DATE OF DICTATION: 01/06/2020 REASON FOR CONSULTATION: Weakness, abdominal pain, dysphagia. HISTORY OF PRESENT ILLNESS: The patient is an 89-year-old pleasant white female who came into the emergency room yesterday complaining of abdominal pain, progressive weakness, dysphagia to solids for the last few weeks' duration. According to her daughter, who provided most of the history, she has been having progressive dysphagia to solids for the last several weeks. She complains of passive regurgitation. She feels the food gets stuck in her lower sternal area. She has a history of gastroesophageal reflux disease and has been taking omeprazole 20 mg daily. She recalls having an upper endoscopy with dilation about 20 years ago. Her abdominal pain is mostly in the epigastric and right upper quadrant area. She reports no nausea, vomiting. She denies any recent weight loss. No rectal bleeding or melena. PAST MEDICAL HISTORY: Her past medical history is significant for hypertension, hyperlipidemia, hypothyroidism, gastroesophageal reflux disease. PAST SURGICAL HISTORY: Upper endoscopy 20 years ago. MEDICATIONS: Medications at home include Synthroid, Motrin, glucosamine, garlic, cranberry, vitamin D, calcium, Lipitor, Tenormin, aspirin, vitamin C, Tylenol Arthritis, tumeric, quinidine, omeprazole multivitamin. ALLERGIES: NONE. SOCIAL HISTORY: No smoking. No alcohol use. FAMILY HISTORY: Unremarkable. REVIEW OF SYSTEMS: CARDIOPULMONARY: No chest pain or shortness of breath. GENITOURINARY: No dysuria or hematuria. MUSCULOSKELETAL: Unremarkable. SKIN: Unremarkable. ENDOCRINE: Unremarkable. PSYCHIATRIC: Unremarkable. NEUROLOGY: Unremarkable. ENT/VISION: Unremarkable. CONSTITUTIONAL: Generalized weakness. No fever, chills, night sweats. GI: As mentioned above. HEMATOLOGY: Unremarkable. PHYSICAL EXAMINATION: She appears comfortable. No apparent distress. VITAL SIGNS: Stable. Blood pressure is 197/66, pulse rate 67, temperature 98.1. HEENT examination unremarkable. Conjunctivae pink. Sclerae anicteric. Oral cavity no lesions. NECK: No JVD or lymph node enlargement. CHEST: Clear to auscultation. HEART: Regular rate and rhythm. ABDOMEN: Soft. There was mild tenderness in the epigastric area. The rest of the abdomen was benign. Bowel sounds are positive. No organomegaly. EXTREMITIES: No pedal edema. SKIN: No rashes. NEUROLOGIC: Alert and oriented x3. No focal deficits. LABS: WBC 8.4, hemoglobin 13.6, platelets normal. Basic metabolic panel is within normal limits. Lipase is normal. ALT, AST, T-bilirubin and alkaline phosphatase are also within normal limits. She did have ultrasound of the abdomen done yesterday that showed heterogeneous-appearing liver consistent with fatty infiltration with prominent left lobe of the liver. Common bile duct is unremarkable. Gallbladder surgically absent. Pancreas is obscured by gas. She had an abdominal CT scan done on 01/02/2020 that showed mild dilation of the common bile duct measuring 9 mm in diameter as well as mild dilation of the pancreatic duct. Also there was a 7 mm nodular soft tissue prominence noted in the ampullary region and gastric fold thickening was noted. Sigmoid diverticulosis. IMPRESSION: 1. Progressive dysphagia to solids for the last several months' duration. Rule out esophageal stricture. 2. History of gastroesophageal reflux disease. 3. Abnormal CT scan showing dilated common bile duct as well as mild dilation of the pancreatic duct of unclear significance. Her lipase is normal. LFTs are within normal limits. RECOMMENDATIONS: 1. Will proceed with an EGD with dilation today. 2. Discussed with the patient as well as her daughter risks, benefits and complications. 3. Continue with Protonix 40 mg twice daily. 4. Will obtain MRCP to evaluate the pancreatic or biliary system. 5. Will follow with you closely. Thank you for this consultation. MMODL / IJN: [id number] /
[2020-01-06] MEDS: PANTOPRAZOLE 40 MG TABLET PO SCH (16:42)
[2020-01-06] MEDS: hydrALAZINE HCL 10 MG TAB PO SCH ×2 (16:42→21:32)
[2020-01-06] MEDS ORDERED: Acetaminophen-Codeine 300-30mg TAB PO PRN (20:37)
[2020-01-06] MEDS ORDERED: ATENOLOL 50 MG TAB PO SCH (21:00)
[2020-01-06] MEDS ORDERED: ATORVASTATIN 10 MG TAB PO SCH (21:00)
--- NOTE | 2020-01-06 23:35 | P.HPIM ---
History of Present Illness H&P Date: 01/05/20 Chief Complaint: Severe abdominal pain, back pain, dilated common duct, history of gallbladd 89-year-old female who was transferred to Dr. Snyder's service recently was seen at the emergency department on the after was seen at the walk-in clinic was diagnosed with UTI and was treated developed to have significant abdominal pain as a seated with lower back pain with no appetite with worsening symptom ended up coming to the emergency department at the time w as seen her CAT scan of the abdomen on the showed significant common duct dilated patient with 7 mm nodular soft tissue at the ampullary region could be malignant in origin. Patient refused to be admitted at to the hospital at the time ended up going home but continued to have significant and worsening symptoms ended up coming to demurs department with family member because of the severity of her abdominal discomfort not been able to eat or drink become quite bit dehydrated and her discomfort as radiating to lower back area. Review her CAT scan showed significant thickening of the gastric area consistent with a chronic gastritis also consistent with chronic cystitis and mild diverticulitis. With all the above symptoms patient was seen today and evaluated L-spine x-ray showed mild lumbar spine degenerative arthritis her UA still slightly but positive with white blood cell down to 8.4 her liver enzyme including her alkaline phosphatase were not elevated at the time. Patient will be started on pantoprazole IV mild management for diverticulitis we consult gastroenterology for the current finding with her biliary tree and possible need either an ERCP or MRCP with the severity of her nausea and severe gastritis might need an EGD initially. Review of Systems CONSTITUTIONAL: Well-developed no acute respiratory distress. EYES: No icterus sclerae, no conjunctivitis. EARS, NOSE, MOUTH, THROAT, and FACE: No sore throat, lymphadenopathy, carotid bruits or deformity. RESPIRATORY: No SOB cough or wheezes. CARDIOVASCULAR: No CP, Palpitation, PND, Orthopnea, or angina. GASTROINTESTINAL: Positive abdominal pain with nausea and vomiting slight diarrhea no gastrointestinal bleed at the time slight change in bowel habit. No sign of jaundice as well. Mild symptom of left lower quadrant discomfort. GENITOURINARY: Mild symptom of UTI and patient is still on treatment. INTEGUMENT/BREAST: Negative for any muscular injury with mild osteoarthritis.. HEMATOLOGIC/LYMPHATIC: Negative for bleed or purpura. MUSCULOSKELTAL: Significant lower back pain. NEURLOGICAL: No LOC, Sz or syncope, blurred vision dizziness or abnormality.. BEHAVIORAL/PSYCH: Negative. ENDOCRINE: Negative. 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 History of Any Multi-Drug Resistant Organisms: None Reported Past Surgical History: Cholecystectomy Past Anesthesia/Blood Transfusion Reactions: No Reported Reaction Past Psychological History: No Psychological Hx Reported Smoking Status: Never smoker Past Alcohol Use History: None Reported Past Drug Use History: None Reported - Past Family History Father Family Medical History: Cancer Medications and Allergies Home Medications Medication Instructions Recorded Confirmed Type Acetaminophen [Tylenol Arthritis] 650 mg PO Q12H PRN 01/05/20 01/05/20 History Ascorbic Acid [Vitamin C] 500 mg PO DAILY 01/05/20 01/05/20 History Aspirin EC [Ecotrin Low Dose] 81 mg PO DAILY 01/05/20 01/05/20 History Atenolol [Tenormin] 50 mg PO HS 01/05/20 01/05/20 History Atorvastatin [Lipitor] 10 mg PO HS 01/05/20 01/05/20 History Bee Pollen 550 mg PO DAILY 01/05/20 01/05/20 History Calcium Carbonate/Vitamin D3 1 tab PO BID 01/05/20 01/05/20 History [Calcium 600-Vit D3 200 Tablet] Cholecalciferol [Vitamin D3 (25 1,000 unit PO DAILY 01/05/20 01/05/20 History Mcg = 1000 Iu)] Cranberry 4200mg 4,200 mg PO DAILY 01/05/20 01/05/20 History Garlic 1 tab PO DAILY 01/05/20 01/05/20 History Glucosamine Hcl 2000mg 2,000 mg PO DAILY 01/05/20 01/05/20 History Ibuprofen [Motrin Ib] 200 - 400 mg PO Q6H PRN 01/05/20 01/05/20 History Levothyroxine Sodium [Synthroid] 25 mcg PO DAILY 01/05/20 01/05/20 History Magnesium 200 mg PO BID 01/05/20 01/05/20 History Multivitamins, Thera [Multivitamin 1 tab PO DAILY 01/05/20 01/05/20 History (formulary)] Nitrofurantoin Monohyd/M-Cryst 100 mg PO Q12HR 01/05/20 01/05/20 History [Macrobid] Omeprazole 20 mg PO DAILY 01/05/20 01/05/20 History Turmeric Root Extract [Turmeric] 500 mg PO DAILY 01/05/20 01/05/20 History quiNIDine SULFATE 300 mg PO Q48H 01/05/20 01/05/20 History Allergies Allergy/AdvReac Type Severity Reaction Status Date / Time No Known Allergies Allergy Verified 01/05/20 11:41 Physical Exam Vitals: Vital Signs Temp Pulse Pulse Resp BP BP Pulse Ox 01/05/20 20:38 98.3 F 63 16 143/60 97 01/05/20 18:56 138/57 01/05/20 18:07 119/52 01/05/20 17:42 60 18 93/43 96 01/05/20 16:00 18 168/63 01/05/20 15:35 18 180/76 01/05/20 15:04 66 18 178/77 96 01/05/20 13:54 69 18 169/71 01/05/20 13:40 166/69 01/05/20 13:30 70 18 160/69 01/05/20 13:19 63 18 224/82 98 01/05/20 12:25 98.6 F 63 18 205/84 98 01/05/20 10:38 98.9 F 75 18 137/68 98 Intake and Output 01/05/20 01/05/20 01/05/20 06:59 14:59 22:59 Other: Weight 53.524 kg 53.524 kg General Appearance: Alert, cooperative, no distress, appears stated age. Neck HEENT: Supple, no lymphadenopathy, no thyroid enlargement, no carotid bruits. Lungs: Clear to auscultation without crackles or wheezes no rhonchi, no deformity. Chest Wall: Chest wall normal expansion with deep inspiration no tenderness and no deformity was found on exam, no costochondral pain or discomfort. Heart: Regular rate and rhythm, S1, S2 normal, no murmur, rub or gallop. Back: Significant discomfort in the lower back area with no deformity no rash was found. Abdomen: Soft possible sounds slight discomfort in the mid epigastric area and left lower quadrant area without rigidity or masses no sign of ascites Extremities: Extremities normal, atraumatic, no cyanosis or edema. Pulses: 2+ and symmetric. Skin: Skin color, texture, tugor normal, no rashes or lesions. Neurologic: Alert oriented x3 cranial nerves II through XII intact, no motor deficit, no abnormal balance or gait. Results CBC & Chem 7: 01/06/20 05:50 01/06/20 05:50 Labs: Abnormal Lab Results - Last 24 Hours (Table) 01/05/20 01/05/20 01/05/20 Range/Units 11:25 11:25 13:51 D-Dimer 0.69 H (<0.60) mg/L FEU Sodium 136 L (137-145) mmol/L BUN 25 H (7-17) mg/dL Urine Protein 1+ H (Negative) Urine Bacteria Rare H (None) /hpf Hyaline Casts 21 H (0-2) /lpf Urine Mucus Rare H (None) /hpf Thrombosis Risk Factor Assmnt - DVT/VTE Prophylaxis DVT/VTE Prophylaxis: Pharmacologic Prophylaxis ordered, Mechanical Prophylaxis ordered - Choose All That Apply Any of the Below Risk Factors Present?: No Other Risk Factors: Yes Each Risk Factor Represents 3 Points: Age 75 years or older Other congenital or acquired thrombophilia - If yes, enter type in comment: No Thrombosis Risk Factor Assessment Total Risk Factor Score: 3 Thrombosis Risk Factor Assessment Level: Moderate Risk Assessment and Plan Assessment: 1 acute abdominal pain: Combination of acute gastritis with common duct dietitian urinary tract infection and diverticulitis. 2 severe acute gastritis: Patient be on pantoprazole IV consult gastroenterology and patient should be going for an EGD. 3 severe diverticulitis: With patient's current symptoms Will use Flagyl and Zosyn. 4 common duct dietitian and ampullary enlargement with possible mass: Patient will need to go for an ERCP or MRCP review finding with gastroenterology and decide on further management at the time. 5 UTI: A Chin was on Macrodantin will be on Zosyn for now. 6 hypertension: Blood pressure was well-controlled currently on atenolol 50 mg daily. 7 hypothyroidism: Continue patient on levothyroxine 25 g daily. 8 hyperlipidemia: Continue atorvastatin 10 mg daily. 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 10 GI prophylaxis: Patient will be on pantoprazole. 11 DVT prophylaxis: Patient will be on heparin 5000 units subcutaneous twice a day. CODE STATUS: Full code. Admit patient to inpatient status for more than 2 night stay.
[2020-01-07] MEDS: PIPERACILLIN-TAZOBACTAM 3.375 GM in SODIUM CHLORIDE 0.9% 100 ML IVPB SCH ×2 (00:25→08:19)
[2020-01-07] MEDS: LEVOTHYROXINE 25 MCG TAB PO SCH (05:31)
[2020-01-07] MEDS: SODIUM CHLORIDE 0.9% 1,000 ML IV SCH (05:31)
[2020-01-07] MEDS: MULTIVITAMINS, THERA 1 EACH TAB PO SCH (08:17)
[2020-01-07] MEDS: CHOLECALCIFEROL 1,000 UNIT TAB PO SCH (08:17)
[2020-01-07] MEDS: metroNIDAZOLE 500 MG TAB PO SCH (08:17)
[2020-01-07] MEDS: NITROFURANTOIN MONOHYD/M-CRYST 100 MG CAP PO SCH (08:17)
[2020-01-07 08:18] VITALS: BP 119/71; PULSE 83; RESP 18; TEMP 98.6
[2020-01-07] MEDS: MAGNESIUM OXIDE 400 MG TAB PO SCH (08:18)
[2020-01-07] MEDS: hydrALAZINE HCL 10 MG TAB PO SCH ×2 (08:18→13:46)
[2020-01-07] MEDS: ASPIRIN 81 MG PO SCH (08:18)
[2020-01-07] MEDS: CALCIUM CARB-VIT D 500MG-200UN 1 EACH TAB PO SCH (08:18)
[2020-01-07] MEDS: ASCORBIC ACID 500 MG TAB PO SCH (08:18)
[2020-01-07] MEDS: PANTOPRAZOLE 40 MG TABLET PO SCH (08:19)
--- NOTE | 2020-01-07 11:22 | MR ---
EXAMINATION TYPE: MR MRCP DATE OF EXAM: 01/07/2020 COMPARISON: Ultrasound 01/05/2020 HISTORY: Abdominal pain, possible bile duct obstruction Standard multiplanar, multisequence MRI departmental protocol Multiplanar, multisequence images of the biliary tree were acquired. Diffusion weighted imaging was p erformed. FINDINGS: The gallbladder surgically absent. There is dilatation of the common bile duct at 1 cm. I d o not see evidence for filling defect to suggest common bile duct stone at this time. No evidence for dilatation of the intrahepatic biliary tree. Pancreatic duct is not dilated. Mild fatty infiltration seen. Pancreas changes. IMPRESSION: Postcholecystectomy change. Mildly dilated common bile duct without evidence for filling defect ident ified at this time.
--- NOTE | 2020-01-07 12:39 | P.PN ---
Subjective Progress Note Date: 01/06/20 89-year-old female who was transferred to Dr. Snyder's service recently was seen at the emergency department on the after was seen at the walk-in clinic was diagnosed with UTI and was treated developed to have significant abdominal pain as a seated with lower back pain with no appetite with worsening symptom ended up coming to the emergency department at the time was seen her CAT scan of the abdomen on the showed significant common duct dilated patient with 7 mm nodular soft tissue at the ampullary region could be malignant in origin. Patient refused to be admitted at to the hospital at the time ended up going home but continued to have significant and worsening symptoms ended up coming to demurs department with family member because of the severity of her abdominal discomfort not been able to eat or drink become quite bit dehydrated and her discomfort as radiating to lower back area. Review her CAT scan showed significant thickening of the gastric area consistent with a chronic gastritis also consistent with chronic cystitis and mild diverticulitis. With all the above symptoms patient was seen today and evaluated L-spine x-ray showed mild lumbar spine degenerative arthritis her UA still slightly but positive with white blood cell down to 8.4 her liver enzyme including her alkaline phosphatase were not elevated at the time. Patient will be started on pantoprazole IV mild management for diverticulitis we consult gastroenterology for the current finding with her biliary tree and possible need either an ERCP or MRCP with the severity of her nausea and severe gastritis might need an EGD initially. 01/05: Patient states abdomen is slender and feeling better today. She denies any nausea, vomiting or diarrhea. Patient is scheduled for EGD today and possible MRCP for tomorrow. She is currently on Flagyl and Zosyn. She is nothing by mouth for procedure. She has been afebrile, heart rate 65, blood pressure 130/60, pulse ox 96% on room air. Repeat CBC is unremarkable. BUN 19 and creatinine 0.88. Liver function tests within normal limits. COVID-19 te sting negative. Review of Systems CONSTITUTIONAL: Well-developed no acute respiratory distress. Denies fever, chills EYES: No icterus sclerae, no conjunctivitis. EARS, NOSE, MOUTH, THROAT, and FACE: No sore throat, lymphadenopathy, carotid bruits or deformity. RESPIRATORY: No SOB cough or wheezes. CARDIOVASCULAR: No CP, Palpitation, PND, Orthopnea, or angina. GASTROINTESTINAL: Positive abdominal pain with nausea and vomiting slight diarrhea no gastrointestinal bleed at the time slight change in bowel habit. No sign of jaundice as well. Mild symptom of left lower quadrant discomfort. GENITOURINARY: Mild symptom of UTI and patient is still on treatment. INTEGUMENT/BREAST: Negative for any muscular injury with mild osteoarthritis.. HEMATOLOGIC/LYMPHATIC: Negative for bleed or purpura. MUSCULOSKELTAL: Significant lower back pain. NEURLOGICAL: No LOC, Sz or syncope, blurred vision dizziness or abnormality.. BEHAVIORAL/PSYCH: Negative. ENDOCRINE: Negative. Physical Examination General Appearance: Alert, cooperative, no distress, appears stated age. Daughter at bedside. Neck HEENT: Supple, no lymphadenopathy, no thyroid enlargement, no carotid bruits. Lungs: Clear to auscultation without crackles or wheezes no rhonchi, no deformity. Chest Wall: Chest wall normal expansion with deep inspiration no tenderness and no deformity was found on exam, no costochondral pain or discomfort. Heart: Regular rate and rhythm, S1, S2 normal, no murmur, rub or gallop. Back: Significant discomfort in the lower back area with no deformity no rash was found. Abdomen: Soft possible sounds slight discomfort in the mid epigastric area and left lower quadrant area without rigidity or masses no sign of ascites Extremities: Extremities normal, atraumatic, no cyanosis or edema. Pulses: 2+ and symmetric. Skin: Skin color, texture, tugor normal, no rashes or lesions. Neurologic: Alert oriented x3 cranial nerves II through XII intact, no motor deficit, no abnormal balance or gait. Assessment and Plan 1 acute abdominal pain: Combination of acute gastritis with common duct dietitian urinary tract infection and diverticulitis. 2 severe acute gastritis: Patient be on pantoprazole IV consult gastroenterology and patient should be going for an EGD. 3 severe diverticulitis: With patient's current symptoms Will use Flagyl and Zosyn. 4 common duct dietitian and ampullary enlargement with possible mass: MRCP tomorrow. 5 UTI: A Chin was on Macrodantin will be on Zosyn for now. 6 hypertension: Blood pressure was well-controlled currently on atenolol 50 mg daily. 7 hypothyroidism: Continue patient on levothyroxine 25 g daily. 8 hyperlipidemia: Continue atorvastatin 10 mg daily. 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 10 GI prophylaxis: Patient will be on pantoprazole. 11 DVT prophylaxis: Patient will be on heparin 5000 units subcutaneous twice a day. CODE STATUS: Full code. Discharge plan: Home Impression and plan of care have been directed as dictated by the signing physician. Faye Edwards nurse practitioner acting as scribe for signing physician. Objective - Vital Signs Vital signs: Vital Signs Temp 98.7 F 01/06/20 04:34 Pulse 70 01/06/20 04:34 Resp 16 01/06/20 04:34 BP 130/68 01/06/20 04:34 Pulse Ox 96 01/06/20 04:34 Intake & Output 01/05/20 01/06/20 01/06/20 18:59 06:59 18:59 Weight 53.524 kg 53.524 kg Other: Voiding Method Toilet - Labs CBC & Chem 7: 01/06/20 05:50 01/06/20 05:50 Labs: Abnormal Lab Results - Last 24 Hours (Table) 01/05/20 01/05/20 01/05/20 Range/Units 11:25 11:25 13:51 D-Dimer 0.69 H (<0.60) mg/L FEU Sodium 136 L (137-145) mmol/L Chloride (98-107) mmol/L BUN 25 H (7-17) mg/dL Total Protein (6.3-8.2) g/dL Albumin (3.5-5.0) g/dL Urine Protein 1+ H (Negative) Urine Bacteria Rare H (None) /hpf Hyaline Casts 21 H (0-2) /lpf Urine Mucus Rare H (None) /hpf 01/06/20 Range/Units 05:50 D-Dimer (<0.60) mg/L FEU Sodium (137-145) mmol/L Chloride 110 H (98-107) mmol/L BUN 19 H (7-17) mg/dL Total Protein 5.7 L (6.3-8.2) g/dL Albumin 3.3 L (3.5-5.0) g/dL Urine Protein (Negative) Urine Bacteria (None) /hpf Hyaline Casts (0-2) /lpf Urine Mucus (None) /hpf
--- NOTE | 2020-01-07 12:52 | P.DS ---
Providers Date of admission: 01/05/20 13:45 Expected date of discharge: 01/07/20 Attending physician: Salbador Emmanuel Consults: 01/05/20 13:47 Consult Physician Stat Consulting Provider: Nela Packer Consult Reason/Comments: Increasing abdominal pain, possible bile duct obstruction Do you want consulting provider notified?: Yes Primary care physician: [facility] Hospital Course: 89-year-old female who was transferred to Dr. Snyder's service recently was seen at the emergency department on the after was seen at the walk-in clinic was diagnosed with UTI and was treated developed to have significant abdominal pain as a seated with lower back pain with no appetite with worsening symptom ended up coming to the emergency department at the time was seen her CAT scan of the abdomen on the showed significant common duct dilated patient with 7 mm nodular soft tissue at the ampullary region could be malignant in origin. Patient refused to be admitted at to the hospital at the time ended up going home but continued to have significant and worsening symptoms ended up coming to demurs department with family member because of the severity of her abdominal discomfort not been able to eat or drink become quite bit dehydrated and her discomfort as radiating to lower back area. Review her CAT scan showed significant thickening of the gastric area consistent with a chronic gastritis also consistent with chronic cystitis and mild diverticulitis. With all the above symptoms patient was seen today and evaluated L-spine x-ray showed mild lumbar spine degenerative arthritis her UA still slightly but positive with white blood cell down to 8.4 her liver enzyme including her alkaline phosphatase were not elevated at the time. Patient will be started on pantoprazole IV mild management for diverticulitis we consult gastroenterology for the current finding with her biliary tree and possible need either an ERCP or MRCP with the severity of her nausea and severe gastritis might need an EGD initially. 01/05: Patient states abdomen is slender and feeling better today. She denies any nausea, vomiting or diarrhea. Patient is scheduled for EGD today and possible MRCP for tomorrow. She is currently on Flagyl and Zosyn. She is nothing by mouth for procedure. She has been afebrile, heart rate 65, blood pressure 130/60, pulse ox 96% on room air. Repeat CBC is unremarkable. BUN 19 and creatinine 0.88. Liver function tests within normal limits. COVID-19 testing negative. 01/06: EGD completed by Dr. Packer on January 05 revealed distal esophageal Scha tzki's ring status post balloon dilatation. Superficial ulcerations in the distal esophagus consistent with reflux esophagitis. Recommendations to continue Protonix 40 mg twice daily. Biopsy report is pending. Patient underwent MRCP this morning but came back normal. Patient has been started on diet and cleared for discharge by GI. Patient denies any new complaints today. She has been afebrile, heart rate 83, blood pressure 119/71, pulse ox 98% on room air. Patient will be discharged home today in stable condition. Assessment and Plan 1 acute abdominal pain secondary to esophagitis 2 esophagitis 3 severe diverticulitis 4 common duct dietitian and ampullary enlargement with possible mass ruled out by MRCP 5 UTI 6 hypertension 7 hypothyroidism 8 hyperlipidemia 9 history of gallbladder cancer 10 COVID-19 infection present Discharge plan: Home Impression and plan of care have been directed as dictated by the signing physician. Faye Edwards nurse practitioner acting as scribe for signing physician. Patient Condition at Discharge: Good Plan - Discharge Summary Discharge Rx Participant: No New Discharge Prescriptions: New hydrALAZINE HCL [Apresoline] 15 mg PO QID #180 tab metroNIDAZOLE [Flagyl] 500 mg PO TID #21 tab Continue Nitrofurantoin Monohyd/M-Cryst [Macrobid] 100 mg PO Q12HR Levothyroxine Sodium [Synthroid] 25 mcg PO DAILY Ibuprofen [Motrin Ib] 200 - 400 mg PO Q6H PRN PRN Reason: Pain Acetaminophen [Tylenol Arthritis] 650 mg PO Q12H PRN PRN Reason: Pain quiNIDine SULFATE 300 mg PO Q48H Atorvastatin [Lipitor] 10 mg PO HS Atenolol [Tenormin] 50 mg PO HS Aspirin EC [Ecotrin Low Dose] 81 mg PO DAILY Glucosamine Hcl 2000mg 2,000 mg PO DAILY Garlic 1 tab PO DAILY Cranberry 4200mg 4,200 mg PO DAILY Turmeric Root Extract [Turmeric] 500 mg PO DAILY Omeprazole 20 mg PO DAILY Multivitamins, Thera [Multivitamin (formulary)] 1 tab PO DAILY Magnesium 200 mg PO BID Cholecalciferol [Vitamin D3 (25 Mcg = 1000 Iu)] 1,000 unit PO DAILY Bee Pollen 550 mg PO DAILY Ascorbic Acid [Vitamin C] 500 mg PO DAILY Calcium Carbonate/Vitamin D3 [Calcium 600-Vit D3 200 Tablet] 1 tab PO BID Discharge Medication List Acetaminophen [Tylenol Arthritis] 650 mg PO Q12H PRN 01/05/20 [History] Ascorbic Acid [Vitamin C] 500 mg PO DAILY 01/05/20 [History] Aspirin EC [Ecotrin Low Dose] 81 mg PO DAILY 01/05/20 [History] Atenolol [Tenormin] 50 mg PO HS 01/05/20 [History] Atorvastatin [Lipitor] 10 mg PO HS 01/05/20 [History] Bee Pollen 550 mg PO DAILY 01/05/20 [History] Calcium Carbonate/Vitamin D3 [Calcium 600-Vit D3 200 Tablet] 1 tab PO BID 01/05/20 [History] Cholecalciferol [Vitamin D3 (25 Mcg = 1000 Iu)] 1,000 unit PO DAILY 01/05/20 [History] Cranberry 4200mg 4,200 mg PO DAILY 01/05/20 [History] Garlic 1 tab PO DAILY 01/05/20 [History] Glucosamine Hcl 2000mg 2,000 mg PO DAILY 01/05/20 [History] Ibuprofen [Motrin Ib] 200 - 400 mg PO Q6H PRN 01/05/20 [History] Levothyroxine Sodium [Synthroid] 25 mcg PO DAILY 01/05/20 [History] Magnesium 200 mg PO BID 01/05/20 [History] Multivitamins, Thera [Multivitamin (formulary)] 1 tab PO DAILY 01/05/20 [History] Nitrofurantoin Monohyd/M-Cryst [Macrobid] 100 mg PO Q12HR 01/05/20 [History] Omeprazole 20 mg PO DAILY 01/05/20 [History] Turmeric Root Extract [Turmeric] 500 mg PO DAILY 01/05/20 [History] quiNIDine SULFATE 300 mg PO Q48H 01/05/20 [History] hydrALAZINE HCL [Apresoline] 15 mg PO QID #180 tab 01/07/20 [Rx] metroNIDAZOLE [Flagyl] 500 mg PO TID #21 tab 01/07/20 [Rx] Follow up Appointment(s)/Referral(s): Marce Ceja MD [Primary Care Provider] - 1 Week Patient Instructions/Handouts: Abdominal Pain (ED) Activity/Diet/Wound Care/Special Instructions: Patient will be admitted Discharge Disposition: HOME SELF-CARE
--- NOTE | 2020-01-07 16:52 | PN ---
PROGRESS NOTE DATE OF DICTATION: 01/07/2020 This patient is an 89-year-old pleasant white female admitted to the hospital with dysphagia. She underwent an EGD yesterday that showed a distal esophageal Schatzki's ring that was dilated with a 12-15 mm balloon. She is feeling much better today on a soft diet, tolerating well. No other complaints. PHYSICAL EXAMINATION: Appears comfortable. No apparent distress. VITAL SIGNS: Stable. Blood pressure is 119/71, pulse rate 80, temperature 98.6. HEENT examination unremarkable. Conjunctivae pink. Sclerae anicteric. Oral cavity no lesions. NECK: No JVD or lymph node enlargement. CHEST: Clear to auscultation. HEART: Regular rate and rhythm. ABDOMEN: Soft. Bowel sounds are positive. No organomegaly. EXTREMITIES: No pedal edema. NEUROLOGIC: Alert and oriented x3. No focal deficits. LAB: CBC is normal. Basic metabolic panel is within normal limits. IMPRESSION: 1. Progressive dysphagia to solids for the last few weeks' duration, status post esophagogastroduodenoscopy yesterday that showed a distal esophageal Schatzki's ring, status post dilation with a 12 to 15 mm balloon, and she is doing much better. 2. Dilated common bile duct and pancreatic duct on CT of the abdomen done 5 days ago. MRCP showed dilated duct, but no pancreatic lesion identified. No filling defects in the CBD noted. RECOMMENDATIONS: 1. Continue with Protonix 40 mg daily. 2. Soft diet today and advance as tolerated. 3. Discussed with the patient and her daughter about the MRCP results. 4. No need for any endoscopic workup in regard to the dilated pancreatic duct. 5. Follow up in office in 2-3 weeks. Thank you for this consultation. MMODL / IJN: [id number] /
== END 2020-01-07 14:12 | disposition home or self-care (01) ==
LOC: EC 10:27 → 4SSUR 13:45 → INTOOBSV 13:45 → 4SSUR 01-06 14:54 → UNDODISIN 01-07 14:12
PROVIDERS: ADMIT Internal Medicine Geriatric Medicine; ATTEND Internal Medicine Geriatric Medicine
DX: K21.0 Gastro-esophageal reflux disease with esophagitis (principal); K22.10 Ulcer of esophagus without bleeding; K57.92 Diverticulitis of intestine, part unspecified, without perforation or abscess without bleeding; K29.00 Acute gastritis without bleeding; K22.8 Other specified diseases of esophagus; K83.8 Other specified diseases of biliary tract; K86.89 Other specified diseases of pancreas; K22.2 Esophageal obstruction; N39.0 Urinary tract infection, site not specified; I10 Essential (primary) hypertension; E03.9 Hypothyroidism, unspecified; E78.5 Hyperlipidemia, unspecified; E86.0 Dehydration; M47.896 Other spondylosis, lumbar region; Z79.82 Long term (current) use of aspirin; Z79.899 Other long term (current) drug therapy; Z79.1 Long term (current) use of non-steroidal anti-inflammatories (NSAID); Z79.890 Hormone replacement therapy; Z03.818 Encounter for observation for suspected exposure to other biological agents ruled out; Z85.09 Personal history of malignant neoplasm of other digestive organs; Z90.49 Acquired absence of other specified parts of digestive tract; Z97.2 Presence of dental prosthetic device (complete) (partial); Z98.890 Other specified postprocedural states; Z80.9 Family history of malignant neoplasm, unspecified
CPT/HCPCS: 96361 ×2; 96375 ×2; 96365; 96366; 99285; 36415; 97161; 97165; 85379; 88305; 80053 ×2; 83605; 83690; 85025 ×2; 81001; 88312; 72100; 71046; 76700; 74181; 43239; 43249; G0378 ×3; U0003; J2543 ×2; J2060; J0360; J2001; J2704; C1726; 96374